=== PATIENT | female | born 1965 | race Caucasian/White ===

== ENCOUNTER 2018-01-10 06:25 | Inpatient (IN) | payer BC ==
[2018-01-10] MEDS ORDERED: SODIUM CHLORIDE 0.9% 1,000 ML IV STA (06:57)
[2018-01-10] MEDS ORDERED: MAG HYDROX/AL HYDROX/SIMETH 30 ML, HYOSCYAMINE ELIXIR 10 ML, CIMETIDINE HCL 300 MG, LID... PO STA ×4 (06:58)
--- NOTE | 2018-01-10 07:00 | ED ---
General Adult HPI - General Chief complaint: Chest Pain Stated complaint: Abdominal Pain, light-headed Time Seen by Provider: 01/10/18 06:52 Source: patient, RN notes reviewed Mode of arrival: ambulatory Limitations: no limitations - History of Present Illness Initial comments: Patient's a 52-year-old female presented to the emergency room today with a chief complaint of upper abdominal pain it's radiating around to the back both left and right side. She states she's also felt some pain radiate up into the chest. She states does not feel like acid reflux to her. She states she has been trying to take Prilosec this past week with little relief. Patient does not pain is worse when she lays down. States pain slightly better at this time but was unable to sleep last night. Currently rates pain 5/10. Denies any other complaints or symptoms. Patient denies any recent fever, chills, shortness of breath, back pain, nausea or vomiting, numbness or tingling, headaches or visual changes, or any other complaints. - Related Data Home Medications Medication Instructions Recorded Confirmed Aspirin EC [Ecotrin Low Dose] 81 mg PO HS 01/10/18 01/10/18 Cyanocobalamin (Vitamin B-12) 1,000 mcg PO HS 01/10/18 01/10/18 [Vitamin B-12] Allergies Allergy/AdvReac Type Severity Reaction Status Date / Time bee venom protein (honey bee) Allergy Anaphylaxis Verified 01/10/18 08:03 Review of Systems ROS Statement: Those systems with pertinent positive or pertinent negative responses have been documented in the HPI. ROS Other: All systems not noted in ROS Statement are negative. Past Medical History Past Medical History: Hyperlipidemia Additional Past Medical History / Comment(s): brain lesions History of Any Multi-Drug Resistant Organisms: None Reported Past Surgical History: Back Surgery Past Psychological History: No Psychological Hx Reported Smoking Status: Current every day smoker Past Alcohol Use History: None Reported Past Drug Use History: None Reported General Exam - General Exam Comments Initial Comments: General: The patient is awake and alert, in no distress, and does not appear acutely ill. Eye: Pupils are equal, round and reactive to light, extra-ocular movements are intact. No nystagmus. There is normal conjunctiva bilaterally. No signs of icterus. Ears, nose, mouth and throat: There are moist mucous membranes and no oral lesions. Neck: The neck is supple, there is no tenderness or JVD. Cardiovascular: There is a regular rate and rhythm. No murmur, rub or gallop is appreciated. Respiratory: Lungs are clear to auscultation, respirations are non-labored, breath sounds are equal. No wheezes, stridor, rales, or rhonchi. Gastrointestinal: Abdomen soft on palpation. Patient does have tenderness epigastric and left upper quadrant. No rebound, guarding or CVA tenderness. Musculoskeletal: Normal ROM, no tenderness. Strength 5/5. Sensation intact. Pulses equal bilaterally 2+. Neurological: A&O x 3. CN II-XII intact, There are no obvious motor or sensory deficits. Coordination appears grossly intact. Speech is normal. Skin: Skin is warm and dry and no rashes or lesions are noted. Psychiatric: Cooperative, appropriate mood & affect, normal judgment. Limitations: no limitations Course Vital Signs 01/10/18 01/10/18 06:40 08:03 Temperature 98.2 F Pulse Rate 71 54 L Respiratory 17 18 Rate Blood Pressure 124/69 111/63 O2 Sat by Pulse 99 97 Oximetry EKG Findings - EKG Comments: EKG Findings:: 0652: EKG shows normal sinus rhythm at 73 bpm NE interval 140. QRS 82. QT/QTC 398/438. No acute ST changes. Medical Decision Making - Medical Decision Making Patient reexamined at this time shows no signs of distress. She is resting couple. She does admit to some mild improvement after GI cocktail. Patient labs been reviewed and are unremarkable. EKG showed no acute abnormality. Patient was on heart monitor and did have an episode of tachycardia it is difficult to distinguish P waves. Episode lasted a few seconds. Patient does admit that she did feel some palpitations. She states she has had symptoms similar to this in the past has tried follow-up for it. States never been captured and never used a Holter monitor. Patient will be admitted with cardiology consult. Patient will have serial cardiac enzymes. - Lab Data Result diagrams: 01/10/18 07:04 01/10/18 07:04 Lab Results 01/10/18 01/10/18 01/10/18 Range/Units 07:04 07:04 07:04 WBC 9.0 (3.8-10.6) k/uL RBC 4.35 (3.80-5.40) m/uL Hgb 13.7 (11.4-16.0) gm/dL Hct 41.4 (34.0-46.0) % MCV 95.1 (80.0-100.0) fL MCH 31.6 (25.0-35.0) pg MCHC 33.2 (31.0-37.0) g/dL RDW 12.6 (11.5-15.5) % Plt Count 290 (150-450) k/uL Neutrophils % 57 % Lymphocytes % 34 % Monocytes % 5 % Eosinophils % 2 % Basophils % 0 % Neutrophils # 5.2 (1.3-7.7) k/uL Lymphocytes # 3.1 (1.0-4.8) k/uL Monocytes # 0.5 (0-1.0) k/uL Eosinophils # 0.2 (0-0.7) k/uL Basophils # 0.0 (0-0.2) k/uL PT (9.0-12.0) sec INR (<1.2) APTT (22.0-30.0) sec Sodium 141 (137-145) mmol/L Potassium 4.8 (3.5-5.1) mmol/L Chloride 109 H (98-107) mmol/L Carbon Dioxide 28 (22-30) mmol/L Anion Gap 4 mmol/L BUN 11 (7-17) mg/dL Creatinine 0.85 (0.52-1.04) mg/dL Est GFR (CKD-EPI)AfAm >90 (>60 ml/min/1.73 sqM) Est GFR (CKD-EPI)NonAf 79 (>60 ml/min/1.73 sqM) Glucose 97 (74-99) mg/dL Calcium 9.4 (8.4-10.2) mg/dL Magnesium 2.0 (1.6-2.3) mg/dL Total Bilirubin 0.3 (0.2-1.3) mg/dL AST 23 (14-36) U/L ALT 33 (9-52) U/L Alkaline Phosphatase 76 (38-126) U/L Total Creatine Kinase 67 (30-135) U/L CK-MB (CK-2) 0.4 (0.0-2.4) ng/mL CK-MB (CK-2) Rel Index 0.6 Troponin I <0.012 (0.000-0.034) ng/mL Total Protein 6.7 (6.3-8.2) g/dL Albumin 4.1 (3.5-5.0) g/dL Amylase 57 (30-110) U/L Lipase 68 (23-300) U/L 01/10/18 Range/Units 07:04 WBC (3.8-10.6) k/uL RBC (3.80-5.40) m/uL Hgb (11.4-16.0) gm/dL Hct (34.0-46.0) % MCV (80.0-100.0) fL MCH (25.0-35.0) pg MCHC (31.0-37.0) g/dL RDW (11.5-15.5) % Plt Count (150-450) k/uL Neutrophils % % Lymphocytes % % Monocytes % % Eosinophils % % Basophils % % Neutrophils # (1.3-7.7) k/uL Lymphocytes # (1.0-4.8) k/uL Monocytes # (0-1.0) k/uL Eosinophils # (0-0.7) k/uL Basophils # (0-0.2) k/uL PT 9.8 (9.0-12.0) sec INR 1.0 (<1.2) APTT 22.5 (22.0-30.0) sec Sodium (137-145) mmol/L Potassium (3.5-5.1) mmol/L Chloride (98-107) mmol/L Carbon Dioxide (22-30) mmol/L Anion Gap mmol/L BUN (7-17) mg/dL Creatinine (0.52-1.04) mg/dL Est GFR (CKD-EPI)AfAm (>60 ml/min/1.73 sqM) Est GFR (CKD-EPI)NonAf (>60 ml/min/1.73 sqM) Glucose (74-99) mg/dL Calcium (8.4-10.2) mg/dL Magnesium (1.6-2.3) mg/dL Total Bilirubin (0.2-1.3) mg/dL AST (14-36) U/L ALT (9-52) U/L Alkaline Phosphatase (38-126) U/L Total Creatine Kinase (30-135) U/L CK-MB (CK-2) (0.0-2.4) ng/mL CK-MB (CK-2) Rel Index Troponin I (0.000-0.034) ng/mL Total Protein (6.3-8.2) g/dL Albumin (3.5-5.0) g/dL Amylase (30-110) U/L Lipase (23-300) U/L Disposition Clinical Impression: Chest pain Disposition: ADMITTED IP TO THIS HOSP Condition: Good Instructions: Chest Pain (ED) Is patient prescribed a controlled substance at d/c from ED?: No Referrals: Ej Laura MD [Primary Care Provider] - 1-2 days Time of Disposition: 08:33
[2018-01-10 07:23] LABS: Basophils % (A) 0 %; Eosinophils # (A) 0.2 k/uL (0-0.7); Eosinophils % (A) 2 %; HCT 41.4 % (34.0-46.0); HGB 13.7 gm/dL (11.4-16.0); Lymphocytes # (A) 3.1 k/uL (1.0-4.8); Lymphocytes % (A) 34 %; MCH 31.6 pg (25.0-35.0); MCHC 33.2 g/dL (31.0-37.0); MCV 95.1 fL (80.0-100.0); Mean Platelet Volume 6.8; Monocytes # (A) 0.5 k/uL (0-1.0); Monocytes % (A) 5 %; Neutrophils # (A) 5.2 k/uL (1.3-7.7); Neutrophils % (A) 57 %; Platelet Count 290 k/uL (150-450); RBC 4.35 m/uL (3.80-5.40); RDW 12.6 % (11.5-15.5)
[2018-01-10 07:30] LABS: Partial Thromboplastin Time 22.5 sec (22.0-30.0); Prothrombin Time 9.8 sec (9.0-12.0)
[2018-01-10 07:35] LABS: ALT 33 U/L (9-52); AST 23 U/L (14-36); Albumin 4.1 g/dL (3.5-5.0); Alkaline Phosphatase 76 U/L (38-126); Amylase 57 U/L (30-110); Anion Gap 4 mmol/L; Blood Urea Nitrogen 11 mg/dL (7-17); Calcium 9.4 mg/dL (8.4-10.2); Carbon Dioxide 28 mmol/L (22-30); Chloride 109 mmol/L (98-107); Glucose 97 mg/dL (74-99); Lipase 68 U/L (23-300); Potassium 4.8 mmol/L (3.5-5.1); Sodium 141 mmol/L (137-145); Total Bilirubin 0.3 mg/dL (0.2-1.3); Total Protein 6.7 g/dL (6.3-8.2)
--- NOTE | 2018-01-10 07:37 | XR ---
EXAMINATION TYPE: XR chest 2V DATE OF EXAM: 01/10/2018 COMPARISON: NONE HISTORY: Chest pain TECHNIQUE: Frontal and lateral views of the chest are obtained. FINDINGS: There is no focal air space opacity, pleural effusion, or pneumothorax seen. Platelike lef t basilar subsegmental atelectasis is present. The cardiac silhouette size is within normal limits. The osseous structures are intact. Mild multilevel degenerative change of the thoracic spine is not ed. IMPRESSION: Minimal left basilar linear subsegmental atelectasis. Otherwise no acute cardiopulmonary process. Cholecystectomy clips are noted within the right upper quadrant.
[2018-01-10 07:52] LABS: Creatine Kinase 67 U/L (30-135)
[2018-01-10 08:06] LABS: Creatine Kinase MB 0.4 ng/mL (0.0-2.4); Troponin I <0.012 ng/mL (0.000-0.034)
[2018-01-10] MEDS ORDERED: NITROGLYCERIN SL TABS 0.4 MG TAB SUBLINGUAL PRN ×2 (08:30→08:33)
[2018-01-10] MEDS ORDERED: ASPIRIN 81 MG PO STA (08:30)
[2018-01-10] MEDS ORDERED: SODIUM CHLORIDE 0.9% 1,000 ML IV ONE (08:33)
[2018-01-10 14:06] LABS: Creatine Kinase 66 U/L (30-135)
[2018-01-10 14:18] LABS: Creatine Kinase MB 0.3 ng/mL (0.0-2.4); Troponin I <0.012 ng/mL (0.000-0.034)
[2018-01-10] MEDS ORDERED: CALCIUM CARBONATE 500 MG CHEWABLE PO PRN (17:30)
[2018-01-10 20:36] LABS: Creatine Kinase 68 U/L (30-135)
[2018-01-10 20:46] LABS: Creatine Kinase MB 0.2 ng/mL (0.0-2.4); Troponin I <0.012 ng/mL (0.000-0.034)
[2018-01-10] MEDS ORDERED: HYDROcodone/APAP 5-325MG 1 EACH TAB PO PRN (23:57)
[2018-01-11] MEDS: ONDANSETRON 4 MG/2 ML VIAL IVP PRN (00:02)
[2018-01-11] MEDS: METOPROLOL TARTRATE 25 MG TAB PO SCH ×3 (00:20→21:14)
[2018-01-11 03:26] LABS: Cholesterol 224 mg/dL (<200); HDL Cholesterol 33 mg/dL (40-60); LDL Cholesterol,Calculated 154 mg/dL (0-99); Triglycerides 185 mg/dL (<150)
[2018-01-11] MEDS ORDERED: AMINOPHYLLINE 500 MG/20 ML VIAL IV PRN (08:39)
[2018-01-11] MEDS ORDERED: REGADENOSON 0.4 MG/5 ML SYRINGE IV ONE (08:39)
--- NOTE | 2018-01-11 08:55 | P.HPIM ---
History of Present Illness Chief Complaint: Epigastric pain This is a very pleasant 52-year-old female with no significant past medical history who complained of epigastric and lower chest pain and discomfort. She reports the pain radiates from her epigastrium in the band like fashion to her back She stated that on and off epigastric discomfort for the last few weeks. 4 years prior to this admission she underwent upper endoscopy due to similar pain and at that time she was told that she has significant hiatal hernia and gastritis. She cannot recall if she was told having any ulcers. After that she did not have much of the regular follow-ups and she does not remember being on any antacids or PPIs. For the last couple weeks she's been having on and off epigastric discomfort. Very often brought the foot. Also complicated by some heartburns and nausea no vomiting. She did not notice any blood in stool or black stools. There is no any fevers, night sweats or weight loss. She did not have any sour taste in her mouth she does not have any dysphagia or odynophagia few years ago she had her gallbladder removed. The last couple days especially on the day of the admission the pain intensified and it was more persistent which prompted her coming to the emergency Department. Emergency department she had EKG and troponin is essentially negative and she was admitted more due to cardiac evaluation because she also had some palpitations any irregularities in her heart rate. They that she's been having palpitations for many years and nothing was ever really found on workup in the past. Emergency department she was given a GI cocktail for her abdominal discomfort which she said significantly improve her pain as she's feeling now much better. Did not try anything else for this pain at home. She not notice any particular provoking factors except for food. She did not notice any alleviating factors. Review of Systems REVIEW OF SYSTEMS: CONSTITUTIONAL: She denies any recent weight changes, fevers or night sweats. DERMATOLOGIC: She denies any rashes. HEENT: Eyes: She has had no changes in her vision. No eye pain. No discharge. ENT: She had no hearing changes, no throat pain, no sinus difficulties. No hoarseness. CARDIOVASCULAR: She denies any chest pain or abnormal heart beats, or any swelling in her ankles or feet. RESPIRATORY: No wheezing or coughing. GASTROINTESTINAL: As noted above in history of present illness. GENITOURINARY: She denies any urinary urgency, frequency or burning, and there has been no blood in her urine. She has no flank pain. She has also had no vaginal discharge or bleeding. MUSCULOSKELETAL: She notes full range of motion of all her joints without pain or swelling. ENDOCRINE: She denies any heat or cold intolerance or excessive thirst or urination. NEUROLOGICAL: Currently, no headache. She has no vision changes, or fainting. No numbness or tingling. PSYCHIATRIC: No depression or anxiety Past Medical History Past Medical History: GERD/Reflux, Hyperlipidemia Additional Past Medical History / Comment(s): Brain lesions pt states physician seems unconcerned, B12 deficiency, spondylolisthesis, chronic low back pain. History of Any Multi-Drug Resistant Organisms: None Reported Past Surgical History: Back Surgery, Cholecystectomy, Tubal Ligation Additional Past Surgical History / Comment(s): lower back fusion, R arm "fatty tumor" removed, 2 ectopic pregnancies with lap surgery, colonoscopy. Additional Past Anesthesia/Blood Transfusion Reaction / Comment(s): After back surgery, pt states she woke in excruciating pain and had to be put "out". Pt has clausterphobia but can tolerate MRIs. Smoking Status: Current every day smoker - Past Family History Father Family Medical History: Coronary Artery Disease (CAD) Additional Family Medical History / Comment(s): Father had coronary stents. Mother Additional Family Medical History / Comment(s): Mother is an alcoholic and has hip problems. Medications and Allergies Home Medications Medication Instructions Recorded Confirmed Type Aspirin EC [Ecotrin Low Dose] 81 mg PO HS 01/10/18 01/10/18 History Cyanocobalamin (Vitamin B-12) 1,000 mcg PO HS 01/10/18 01/10/18 History [Vitamin B-12] Allergies Allergy/AdvReac Type Severity Reaction Status Date / Time bee venom protein (honey bee) Allergy Anaphylaxis Verified 01/10/18 08:03 Physical Exam Vitals: Vital Signs Temp Pulse Pulse Resp BP BP Pulse Ox 01/10/18 15:57 98.4 F 65 16 97/60 95 01/10/18 12:00 97.9 F 71 16 103/70 96 01/10/18 10:23 98 01/10/18 09:38 97.7 F 70 16 122/72 97 01/10/18 09:28 97.8 F 78 18 111/69 96 01/10/18 08:41 76 18 122/78 96 01/10/18 08:03 54 L 18 111/63 97 01/10/18 06:40 98.2 F 71 17 124/69 99 Intake and Output 01/10/18 01/10/18 01/10/18 06:59 14:59 22:59 Intake Total 800 Balance 800 Intake: Oral 800 Other: Voiding Method Toilet Weight 86.183 kg 90.1 kg General: No distress. Oriented x 3, normal mood and affect . Ambulating without difficulty. HEENT: Head: Normocephalic, atraumatic, no visible or palpable masses, depressions, or scaring, conjunctiva clear, sclera non-icteric, EOM intact, PERRL Oral: Mucous membranes moist, no mucosal lesions. Pharynx: Mucosa non-inflamed, no tonsillar hypertrophy or exudate Neck: Supple, without lesions, bruits, or adenopathy, thyroid non-enlarged and non-tender Heart: No cardiomegaly or thrills; regular rate and rhythm, no murmur or gallop Lungs: Clear to auscultation and percussion Abdomen: Epigastric tenderness with deep palpation without any guarding involuntary or rebounding, Bowel sounds normal,organomegaly, masses, or hernia Back: Spine normal without deformity or tenderness, no CVA tenderness Extremities: No amputations or deformities, cyanosis, edema or varicosities, peripheral pulses intact Musculoskeletal: No peripheral joint swelling, pain, erythema. No clubbing Skin: Good turgor, no rash, unusual bruising or prominent lesions Neurologic: CN 2-12 normal. Sensation to pain, touch, and proprioception normal. DTRs normal in upper and lower extremities. No pathologic reflexes. Psychiatric: Oriented X3, intact recent and remote memory, judgment and insight , normal mood and affect. Results CBC & Chem 7: 01/10/18 07:04 01/10/18 07:04 Labs: Abnormal Lab Results - Last 24 Hours (Table) 01/10/18 Range/Units 07:04 Chloride 109 H (98-107) mmol/L Thrombosis Risk Factor Assmnt - DVT/VTE Prophylaxis DVT/VTE Prophylaxis: Low risk, early ambulation encouraged - Choose All That Apply Any of the Below Risk Factors Present?: Yes Each Factor Represents 1 point: Age 41-60 years, Obesity (BMI >25) Other Risk Factors: No Other congenital or acquired thrombophilia - If yes, enter type in comment: No Thrombosis Risk Factor Assessment Total Risk Factor Score: 2 Thrombosis Risk Factor Assessment Level: Low Risk Assessment and Plan Plan: 1. Epigastric pain Rule out upper GI pathology including hiatal hernia: Peptic ulcer disease, gastritis or pancreatic pathology Her lipids been normal here but many consider other pancreas related pathologies like tumors We'll order PPI Antacids when necessary discontinue aspirin GI consult 2. Palpitations Questionable chest pain Cardiology has been consulted and we'll await their input Patient will be on telemetry overnight and we will review of anything comes up Patient currently admitted in observation as expected to have less than 2 midnights stay She is a full code is surrogate decision maker Time with Patient: Greater than 30
[2018-01-11] MEDS ORDERED: ASPIRIN 325 MG TAB PO SCH (09:00)
--- NOTE | 2018-01-11 10:03 | P.CRDCN ---
History of Present Illness Consult date: 01/11/18 Chief complaint: Epigastric discomfort History of present illness: This is a pleasant 52-year-old female patient with a past medical history significant for dyslipidemia not on any medication as well as history of smoking presented to the emergency room complaining of epigastric discomfort. The patient stated that she was experiencing discomfort mainly in the epigastric area but sometimes is associated with a pressure in the mid of the chest radiating to her neck. These episodes of epigastric and chest discomfort are associated with shortness of breath. She stated that it started about a year ago and over the last several weeks to several month she has been experiencing them more often. Beside that she has been experiencing intermittent episodes of heart racing and fluttering associated with dizziness and lightheadedness. No loss of consciousness and no syncope. The patient is not aware of any prior history of coronary artery disease and never seen any finish sander in the past. No history of cardiac arrhythmia as well. The EKG showed sinus rhythm with nonspecific changes only. 3 sets of cardiac enzymes were checked and came in to be unremarkable. The chest x-ray showed no acute abnormalities. The patient has been going in and out atrial fibrillation with RVR Y she is in the hospital. She is has no history of atrial fibrillation in the past. She does have history of thyroid disorder but she is not on any medication. She was also has history of hyperlipidemia and she is not on any medications for that. The LDL was checked and came in to be severely elevated. Beside that the patient does have history of snoring during the night but she never been diagnosed with obstructive sleep apnea. In terms of past medical history she does have dyslipidemia not on any medication and also history of hypothyroidism. No major cardiovascular surgery before. The patient is a smoker of about one pack per day. She does have very significant family history of coronary artery disease. Past Medical History Past Medical History: GERD/Reflux, Hyperlipidemia Additional Past Medical History / Comment(s): Brain lesions pt states physician seems unconcerned, B12 deficiency, spondylolisthesis, chronic low back pain. History of Any Multi-Drug Resistant Organisms: None Reported Past Surgical History: Back Surgery, Cholecystectomy, Tubal Ligation Additional Past Surgical History / Comment(s): lower back fusion, R arm "fatty tumor" removed, 2 ectopic pregnancies with lap surgery, colonoscopy. Additional Past Anesthesia/Blood Transfusion Reaction / Comment(s): After back surgery, pt states she woke in excruciating pain and had to be put "out". Pt has clausterphobia but can tolerate MRIs. Smoking Status: Current every day smoker - Past Family History Father Family Medical History: Coronary Artery Disease (CAD) Additional Family Medical History / Comment(s): Father had coronary stents. Mother Additional Family Medical History / Comment(s): Mother is an alcoholic and has hip problems. Medications and Allergies Home Medications Medication Instructions Recorded Confirmed Type Aspirin EC [Ecotrin Low Dose] 81 mg PO HS 01/10/18 01/10/18 History Cyanocobalamin (Vitamin B-12) 1,000 mcg PO HS 01/10/18 01/10/18 History [Vitamin B-12] Allergies Allergy/AdvReac Type Severity Reaction Status Date / Time bee venom protein (honey bee) Allergy Anaphylaxis Verified 01/10/18 08:03 Physical Exam Vitals: Vital Signs Temp Pulse Resp BP Pulse Ox 01/11/18 07:45 98.1 F 69 16 101/60 95 01/11/18 04:00 98.4 F 53 L 16 109/68 96 01/11/18 00:00 98.3 F 70 18 120/74 98 01/10/18 20:00 16 01/10/18 19:41 97.6 F 61 16 141/77 97 01/10/18 15:57 98.4 F 65 16 97/60 95 01/10/18 12:00 97.9 F 71 16 103/70 96 01/10/18 10:23 98 Intake and Output 01/10/18 01/11/18 01/11/18 22:59 06:59 14:59 Intake Total 1000 Balance 1000 Intake: Oral 1000 Other: Voiding Method Toilet Toilet Toilet # Voids 1 2 - Constitutional General appearance: no acute distress - Respiratory Respiratory: bilateral: CTA - Cardiovascular Rhythm: regular Results 01/10/18 07:04 01/10/18 07:04 Cardiac Enzymes 01/10/18 01/10/18 Range/Units 12:53 19:50 CK-MB (CK-2) 0.3 0.2 (0.0-2.4) ng/mL Troponin I <0.012 <0.012 (0.000-0.034) ng/mL Lipids 01/10/18 Range/Units 07:04 Triglycerides 185 H (<150) mg/dL Cholesterol 224 H (<200) mg/dL HDL Cholesterol 33 L (40-60) mg/dL Current Medications Generic Name Dose Route Start Last Admin Trade Name Freq PRN Reason Stop Dose Admin Hydrocodone Bitart/Acetaminophen 1 each 01/10/18 23:57 01/11/18 00:02 Collyer 5-325 PO 1 each Q6HR PRN Administration Pain Aminophylline 100 mg 01/11/18 08:39 Aminophylline IV 01/11/18 23:59 ONCE PRN Patient Response Calcium Carbonate/Glycine 1,000 mg 01/10/18 17:30 Tums PO QID PRN Heartburn Metoprolol Tartrate 25 mg 01/10/18 23:45 01/11/18 00:20 Lopressor PO 25 mg BID REJI Administration Ondansetron HCl 4 mg 01/10/18 23:57 01/11/18 00:02 Zofran IVP 4 mg Q6HR PRN Administration Nausea And Vomiting Pantoprazole Sodium 40 mg 01/11/18 07:30 Protonix PO [id number] REJI Intake and Output 01/10/18 01/11/18 01/11/18 22:59 06:59 14:59 Intake Total 1000 Balance 1000 Intake: Oral 1000 Other: Voiding Method Toilet Toilet Toilet # Voids 1 2 01/10/18 07:04 01/10/18 07:04 Assessment and Plan Assessment: Assessment #1 intermittent episodes of epigastric/chest discomfort #2 abnormal EKG concerning for severe CAD #3 paroxysmal atrial fibrillation #4 hypothyroidism #5 possible sleep apnea #6 significant history of smoking Plan #1 the patient was ruled out for acute coronary event #2 I am concerned about severe CAD getting her risk factor of dyslipidemia, significant history of smoking, and significant family history of coronary artery disease and also abnormal baseline EKG #3 I will obtain a stress test to rule out any severe CAD. Also I will obtain an echocardiogram was Doppler #4 I will start the patient on beta karissa with a small dose of metoprolol titrate to keep her in normal sinus mechanism #5 follow-up with the patient. Thank you for allowing us participate in her care and we will continue following up with her
--- NOTE | 2018-01-11 10:56 | ECHOF ---
Referral Reason:chest pain MEASUREMENTS -------- HEIGHT: 170.2 cm WEIGHT: 89.8 kg BP: IVSd: 0.9 cm (0.6 - 1.1) LVIDd: 4.0 cm (3.9 - 5.3) LVPWd: 1.2 cm (0.6 - 1.1) IVSs: 1.4 cm LVIDs: 2.5 cm LVPWs: 1.2 cm Ao Diam: 3.3 cm (2.0 - 3.7) AV Cusp: 2.0 cm (1.5 - 2.6) LA Diam: 3.4 cm (2.7 - 3.8) MV EXCURSION: 14.577 mm (> 18.000) MV EF SLOPE: 125 mm/s (70 - 150) EPSS: 0.5 cm MV E Dionte: 0.79 m/s MV DecT: 170 ms MV A Dionte: 0.67 m/s MV E/A Ratio: 1.17 RAP: 5.00 mmHg RVSP: 19.09 mmHg FINDINGS -------- Sinus rhythm with extra systolic beats. This was a technically good study. The left ventricular size is normal. There is borderline concentric left ventricular hypertrophy. Overall left ventricular systolic function is normal with, an EF between 55 - 60 %. The right ventricle is normal in size and function. The left atrial size is normal. The right atrium is normal in size. The aortic valve is trileaflet, and appears structurally normal. No aortic stenosis or regurgitation. There is trace mitral regurgitation. Trace tricuspid regurgitation present. The right ventricular systolic pressure, as measured by Dopp ler, is 19.09mmHg. Pulmonic valve appears structurally normal. The aortic root size is normal. Normal inferior vena cava with normal inspiratory collapse consistent with estimated right atrial pre ssure of 5 mmHg. The pericardium is normal. CONCLUSIONS -------- 1. Sinus rhythm with extra systolic beats. 2. This was a technically good study. 3. The left ventricular size is normal. 4. There is borderline concentric left ventricular hypertrophy. 5. Overall left ventricular systolic function is normal with, an EF between 55 - 60 %. 6. The right ventricle is normal in size and function. 7. The left atrial size is normal. 8. The right atrium is normal in size. 9. The aortic valve is trileaflet, and appears structurally normal. No aortic stenosis or regurgitati on. 10. There is trace mitral regurgitation. 11. Trace tricuspid regurgitation present. 12. The right ventricular systolic pressure, as measured by Doppler, is 19.09mmHg. 13. Pulmonic valve appears structurally normal. 14. The aortic root size is normal. 15. Normal inferior vena cava with normal inspiratory collapse consistent with estimated right atrial pressure of 5 mmHg. 16. The pericardium is normal. ENGINEERING SYSTEMS ANALYST: Polly Rousseau RDCS
[2018-01-11] MEDS: PANTOPRAZOLE 40 MG TABLET PO SCH (11:33)
--- NOTE | 2018-01-11 11:47 | P.PN ---
Progress Note - Text Progress Note Date: 01/11/18 Consult attempted patient off floor for testing. We'll reevaluate.
--- NOTE | 2018-01-11 11:50 | NM ---
EXAMINATION TYPE: NM stress lexiscan cardiolite DATE OF EXAM: 01/11/2018 COMPARISON: NONE HISTORY: Chest pain TECHNIQUE: After the intravenous administration of 10.1 mCi Tc 99m Sestamibi - Cardiolite resting SP ECT images were acquired post injection. The patient received 0.4mg Lexiscan, 25.9 mCi Tc 99m Sestamibi - Stress images obtained. FINDINGS: Review of stress and rest SPECT images demonstrates no distinct perfusion abnormality. Gated analysi s shows normal wall motion with an estimated left ventricular ejection fraction of 52 %. IMPRESSION: No scintigraphic evidence for reversible ischemia.
--- NOTE | 2018-01-11 12:25 | EST ---
EXERCISE STRESS AGE: 52 SEX: F HT: 5'7" WT: 198 PROTOCOL: Lexiscan Cardiolite Stress Test HEART RATE REST: 64 BLOOD PRESSURE REST: 110/65 MAXIMUM HEART RATE ACHIEVED: 82 MAXIMUM BLOOD PRESSURE: 110/65 INDICATIONS: Chest pain, palpitations. CLINICAL INFORMATION: STRESS DATA: Pretesting physical exam examination showed a heart rate of 64, pressure 110/65 mmHg. Baseline EKG showed sinus rhythm; 0.4 mg of Lexiscan was given at 15 seconds per protocol. The maximum heart rate was 82 beats per minute and maximum pressure was 110/65 mmHg. Clinically, the patient did not have any symptoms of chest pain or discomfort and the EKG did not show any significant ST or T-wave abnormalities concerning for ischemia. CONCLUSION: 1. Nondiagnostic electrocardiogram stress testing in response to Lexiscan. 2. Please follow up on the Cardiolite portion on a separate report from Radiology Department. MMODL / IJN: [id number] /
--- NOTE | 2018-01-11 16:09 | P.PN ---
Subjective Patient remained largely asymptomatic from the standpoint of chest pain overnight. Also no any nausea or epigastric discomfort. It was noted on telemetry that she's been having paroxysmal A. fib going with a rate even up to 180s. She underwent stress test today and echocardiogram. Cardiology started her Lopressor and recommended further monitoring in the hospital. Patient herself also expressed concern with her epigastric discomfort and was looking forward to talking to gastroenterology service as well. We discussed on the pertinent details of findings. Also reevaluated any other symptomatology at home including daytime sleepiness and snoring. Also she mentioned that recently she developed some rash on her arm and that her primary care doctor diagnosed her with lupus Otherwise she's been feeling fine without any chest pain shortness of breath nausea vomiting fever or chills dizziness lightheadedness or any abdominal pain or diarrhea currently. Objective - Vital Signs Vital signs: Vital Signs Temp 97.6 F 01/11/18 11:50 Pulse 52 L 01/11/18 11:50 Resp 18 01/11/18 11:50 BP 110/73 01/11/18 11:50 Pulse Ox 96 01/11/18 11:50 Intake & Output 01/10/18 01/11/18 01/11/18 18:59 06:59 18:59 Intake Total 1800 420 Balance 1800 420 Weight 90.1 kg 89.811 kg Intake: Oral 1800 420 Other: Voiding Method Toilet Toilet Toilet # Voids 1 2 - Exam General: No distress. Oriented x 3, normal mood and affect . Ambulating without difficulty. Heart: No cardiomegaly or thrills; regular rate and rhythm, no murmur or gallop Lungs: Clear to auscultation and percussion Abdomen: Bowel sounds normal, no tenderness, organomegaly, masses, or hernia Back: Spine normal without deformity or tenderness, no CVA tenderness Extremities: No amputations or deformities, cyanosis, edema or varicosities, peripheral pulses intact - Labs CBC & Chem 7: 01/10/18 07:04 01/10/18 07:04 Labs: Abnormal Lab Results - Last 24 Hours (Table) 01/10/18 Range/Units 07:04 Triglycerides 185 H (<150) mg/dL Cholesterol 224 H (<200) mg/dL LDL Cholesterol, Calc 154 H (0-99) mg/dL HDL Cholesterol 33 L (40-60) mg/dL Assessment and Plan Plan: 1. Epigastric pain Continue PPI and) GI evaluation pending GI consult 2. Paroxysmal A. fib with RVR Started on Lopressor Monitor overnight response TSH Sleep apnea evaluation as outpatient 3. Skin rash Recently diagnosed with lupus No evidence of lupus flare at this point
[2018-01-11] MEDS: ATORVASTATIN 10 MG TAB PO SCH (21:14)
[2018-01-11] MEDS ORDERED: IBUPROFEN 400 MG TAB PO PRN (21:22)
[2018-01-12] MEDS ORDERED: METOPROLOL TARTRATE 25 MG TAB PO STA (00:50)
[2018-01-12] MEDS: ONDANSETRON 4 MG/2 ML VIAL IVP PRN (02:26)
[2018-01-12] MEDS: METOPROLOL TARTRATE 25 MG TAB PO SCH ×2 (08:02→22:10)
[2018-01-12] MEDS: PANTOPRAZOLE 40 MG TABLET PO SCH (08:02)
--- NOTE | 2018-01-12 13:25 | P.PN ---
Subjective Overnight patient did not have any chest pain, shortness of breath nausea vomiting. She did not experience any palpitations although she had one elevation in the heart rate for which he received 25 mg metoprolol and now she' s been in normal sinus rhythm. She was evaluated by gastroenterology and off work EGD and currently she is awaiting to be taken to the procedure. REVIEW OF SYSTEMS: CONSTITUTIONAL: No fever or chills HEENT: No changes in vision or voice CARDIOVASCULAR: no chest pain or abnormal heart beats, or any swelling in ankles or feet. RESPIRATORY: No wheezing or coughing. GASTROINTESTINAL: No abdominal pain, no nausea no vomiting no constipation or diarrhea GENITOURINARY: no any urinary urgency, frequency or burning, and there has been no blood in her urine. no flank pain. MUSCULOSKELETAL: She notes full range of motion of all her joints without pain or swelling. NEUROLOGICAL: , no headache. no vision changes, or fainting. No numbness or tingling. Objective - Vital Signs Vital signs: Vital Signs Temp 96.3 F L 01/12/18 08:00 Pulse 53 L 01/12/18 08:00 Resp 20 01/12/18 08:00 BP 111/65 01/12/18 08:00 Pulse Ox 98 01/12/18 08:00 Intake & Output 01/11/18 01/12/18 01/12/18 18:59 06:59 18:59 Intake Total 420 Output Total 500 Balance 420 -500 Weight 89.811 kg 89.7 kg Intake: Oral 420 Output: Urine 500 Other: Voiding Method Toilet Toilet # Voids 1 2 - Exam General: No distress. Oriented x 3, normal mood and affect . Ambulating without difficulty. Heart: No cardiomegaly or thrills; regular rate and rhythm, no murmur or gallop Lungs: Clear to auscultation and percussion Abdomen: Bowel sounds normal, no tenderness, organomegaly, masses, or hernia Back: Spine normal without deformity or tenderness, no CVA tenderness Extremities: No amputations or deformities, cyanosis, edema or varicosities, peripheral pulses intact - Labs CBC & Chem 7: 01/10/18 07:04 01/10/18 07:04 Assessment and Plan Plan: 1. Epigastric pain Continue PPI and Tums when necessary EGD pending 2. Paroxysmal A. fib with RVR Started on Lopressor TSH normal Sleep apnea evaluation as outpatient 3. Skin rash Recently diagnosed with lupus No evidence of lupus flare at this point Disposition discharge is after EGD today or tomorrow
--- NOTE | 2018-01-12 15:25 | P.PN ---
Subjective Progress Note Date: 01/12/18 This is a pleasant 52-year-old female patient with a past medical history significant for dyslipidemia not on any medication as well as history of smoking presented to the emergency room complaining of epigastric discomfort. The patient stated that she was experiencing discomfort mainly in the epigastric area but sometimes is associated with a pressure in the mid of the chest radiating to her neck. These episodes of epigastric and chest discomfort are associated with shortness of breath. She stated that it started about a year ago and over the last several weeks to several month she has been experiencing them more often. Beside that she has been experiencing intermittent episodes of heart racing and fluttering associated with dizziness and lightheadedness. No loss of consciousness and no syncope. 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 No history of cardiac arrhythmia as well. The EKG showed sinus rhythm with nonspecific changes only. 3 sets of cardiac enzymes were checked and came in to be unremarkable. The chest x-ray showed no acute abnormalities. The patient has been going in and out atrial fibrillation with RVR Y she is in the hospital. She is has no history of atrial fibrillation in the past. She does have history of thyroid disorder but she is not on any medication. She was also has history of hyperlipidemia and she is not on any medications for that. The LDL was checked and came in to be severely elevated. Beside that the patient does have history of snoring during the night but she never been diagnosed with obstructive sleep apnea. In terms of past medical history she does have dyslipidemia not on any medication and also history of hypothyroidism. No major cardiovascular surgery before. The patient is a smoker of about one pack per day. She does have very significant family history of coronary artery disease. 01/12/2018 Patient had a stress test that was negative for any reversible ischemia, she has known paroxysmal A. fib, went into atrial fibrillation through the evening and was transferred to [facility]. Since her transfer upper she's been in and out of atrial fibrillation. Currently in normal sinus rhythm. We will put the patient on flecainide 50 mg one tablet by mouth twice a day today. She is also scheduled tomorrow by GI service to undergo an EGD. Blood pressure 110/60 , heart rate in the 60s. LV function is normal. Objective - Vital Signs Vital signs: Vital Signs Temp 96.3 F L 01/12/18 08:00 Pulse 53 L 01/12/18 08:00 Resp 20 01/12/18 08:00 BP 111/65 01/12/18 08:00 Pulse Ox 98 01/12/18 08:00 Intake & Output 01/11/18 01/12/18 01/12/18 18:59 06:59 18:59 Intake Total 420 240 Output Total 500 Balance 420 -260 Weight 89.811 kg 89.7 kg Intake: Oral 420 240 Output: Urine 500 Other: Voiding Method Toilet Toilet # Voids 1 2 - Exam PHYSICAL EXAMINATION: GENERAL: 22-year-old female in no acute distress at the time of my examination HEENT: Head is atraumatic, normocephalic. Pupils equal, round. Sclera anicteric. Conjunctiva are clear. Mucous membranes of the mouth are moist. Neck is supple. There is no elevated jugular venous pressure.] bruit is heard. HEART EXAMINATION: Heart S1, S2 normal. No murmur or gallop heard. CHEST EXAMINATION: Lungs are clear to auscultation and precussion. No chest wall tenderness is noted on palpation or with deep breathing. Positive mid epigastric tenderness ABDOMEN: Soft, nontender. Bowel sounds are heard. No organomegaly noted. EXTREMITIES: 2+ peripheral pulses with no evidence of peripheral edema and no calf tenderness noted. NEUROLOGIC patient is awake, alert and oriented ?-3. . - Labs CBC & Chem 7: 01/10/18 07:04 01/10/18 07:04 Assessment and Plan Plan: Assessment #1 intermittent episodes of epigastric/chest discomfort #2 abnormal EKG concerning for severe CAD #3 paroxysmal atrial fibrillation #4 hypothyroidism #5 possible sleep apnea #6 significant history of smoking Plan Computed tomography scan stress test negative for any reversible ischemia. Echo shows normal left ventricular systolic function. We will start the patient on flecainide 50 mg one tablet by mouth twice a day today continue to monitor. Patient is scheduled to undergo an EGD tomorrow. DNP note has been reviewed, I agree with a documented findings and plan of care. Patient was seen and examined.
--- NOTE | 2018-01-12 17:25 | P.CONS ---
History of Present Illness - Reason for Consult Consult date: 01/12/18 Abdominal pain Requesting physician: Vick Urbano - Chief Complaint Abdominal and chest pain - History of Present Illness The patient is a 2-year-old female with past medical history significant for dyslipidemia and gastroesophageal reflux disease for which she treats with over- the-counter medications. She presented to the hospital with a chief complaint of epigastric/chest pain. The patient this hasn't started on Wednesday and was described as burning in quality and constant. She felt that the pain radiated into her left shoulder. She reports nausea with the pain but denies any vomiting. The patient has had no change in her bowel habits does report a lifelong history of constipation with approximately one to 2 bowel movements per week. The patient does take 2 baby aspirin daily as well as Motrin as needed. She reported that her reflux has been long-standing and that she will treat this with [id number] ranitidine however she continues to have breakthrough symptoms. She has no prior history of peptic ulcer disease. She does report a previous EGD which showed a hiatal hernia and reports that her last colonoscopy was over 10 years ago. The patient was admitted to the hospital given her symptoms with a full Cardiologic workup including a Lexiscan which was negative and an echocardiogram. The patient has reported some improvement of her symptoms during her hospitalization but has been on a limited diet during the evaluation. Review of Systems Constitutional: Denies chills, Denies fever Eyes: denies blurred vision, denies pain Ears: deny: tinnitus Ears, nose, mouth and throat: Denies headache, Denies sore throat Cardiovascular: Reports chest pain, Denies claudication, Denies dyspnea on exertion, Denies leg edema, Denies shortness of breath Respiratory: Denies cough Gastrointestinal: Reports abdominal pain, Reports constipation, Reports heartburn, Reports nausea, Denies BRBPR, Denies jaundice, Denies loss of appetite, Denies melena, Denies vomiting Genitourinary: Denies dysuria, Denies hematuria Integumentary: Denies color changes, Denies darkening of skin, Denies foot/leg ulcers, Denies pruritus, Denies rash Psychiatric: Denies anxiety, Denies depression Endocrine: Denies fatigue, Denies weight change Past Medical History Past Medical History: GERD/Reflux, Hyperlipidemia Additional Past Medical History / Comment(s): Brain lesions pt states physician seems unconcerned, B12 deficiency, spondylolisthesis, chronic low back pain. History of Any Multi-Drug Resistant Organisms: None Reported Past Surgical History: Back Surgery, Cholecystectomy, Tubal Ligation Additional Past Surgical History / Comment(s): lower back fusion, R arm "fatty tumor" removed, 2 ectopic pregnancies with lap surgery, colonoscopy. Additional Past Anesthesia/Blood Transfusion Reaction / Comm: After back surgery , pt states she woke in excruciating pain and had to be put "out". Pt has clausterphobia but can tolerate MRIs. Smoking Status: Current every day smoker - Past Family History Father Family Medical History: Coronary Artery Disease (CAD) Additional Family Medical History / Comment(s): Father had coronary stents. Mother Additional Family Medical History / Comment(s): Mother is an alcoholic and has hip problems. Medications and Allergies Home Medications Medication Instructions Recorded Confirmed Type Aspirin EC [Ecotrin Low Dose] 81 mg PO HS 01/10/18 01/10/18 History Cyanocobalamin (Vitamin B-12) 1,000 mcg PO HS 01/10/18 01/10/18 History [Vitamin B-12] Allergies Allergy/AdvReac Type Severity Reaction Status Date / Time bee venom protein (honey bee) Allergy Anaphylaxis Verified 01/10/18 08:03 Physical Exam Vitals: Vital Signs Temp Pulse Resp BP BP Pulse Ox 01/12/18 12:00 96.5 F L 50 L 18 94 L 01/12/18 08:00 96.3 F L 53 L 20 111/65 98 01/12/18 03:01 97.6 F 66 16 121/75 96 01/12/18 01:10 59 L 18 105/72 96 01/12/18 00:30 160 H 01/12/18 00:00 16 01/11/18 23:24 98.5 F 40 L 16 119/67 97 01/11/18 20:00 18 Intake and Output 01/12/18 01/12/18 01/12/18 06:59 14:59 22:59 Intake Total 240 Output Total 500 1000 Balance -260 -1000 Intake: Oral 240 Output: Urine 500 1000 Other: Voiding Method Toilet # Voids 2 Weight 89.7 kg - Constitutional General appearance: no acute distress - EENT Eyes: EOMI, no scleral icterus - Neck Neck: no lymphadenopathy - Respiratory Respiratory: bilateral: diminished, negative: rhonchi, wheezing - Cardiovascular Rhythm: regular Heart sounds: normal: S1, S2 - Gastrointestinal General gastrointestinal: no absent bowel sounds, no organomegaly, soft, tenderness Localized gastrointestinal: tender: epigastric periumbilical - Integumentary Integumentary: no jaundiced, no rash - Psychiatric Psychiatric: A&O x's 3 Results CBC & Chem 7: 01/10/18 07:04 01/10/18 07:04 Comments: Results the patient's echocardiogram and Lexiscan were reviewed Assessment and Plan (1) Epigastric abdominal pain Narrative/Plan: The patient has new onset epigastric abdominal pain in the presence of refractory reflux disease differential includes esophagitis, gastritis, dyspepsia, peptic ulcer disease, functional pain or other etiology. The patient has had an extensive cardiac workup with no significant findings to indicate that her pain is related to cardiac pathology Current Visit: Yes Status: Acute Code(s): R10.13 - EPIGASTRIC PAIN SNOMED Code(s): 10073045 (2) Gastroesophageal reflux disease Narrative/Plan: Long-standing history of reflux disease treated with [id number] ranitidine. The patient reports continued symptoms even on the medication. She does take aspirin daily as well as Motrin on occasion. Current Visit: Yes Status: Acute Code(s): K21.9 - GASTRO-ESOPHAGEAL REFLUX DISEASE WITHOUT ESOPHAGITIS SNOMED Code(s): 600062457 Plan: 1. Okay for diet. 2. Appreciate cardiac workup. 3. Nothing by mouth after midnight. 4. Patient instructed to avoid future NSAID use. 5. Plan for EGD in the morning. 6. Patient will need outpatient follow-up for scheduling of colonoscopy. 7. Discussion about tobacco cessation of refractory reflux disease as well as other lifestyle modifications to improve her GERD. 8. Continue Protonix therapy daily. 9. Patient instructed to start fiber supplementation or polyethylene glycol daily as an outpatient for treatment of long-standing history of constipation. Thank you for allowing us to participate in the care of this patient we will continue to follow.
[2018-01-12] MEDS: ATORVASTATIN 10 MG TAB PO SCH (22:10)
[2018-01-12] MEDS: FLECAINIDE 50 MG TAB PO SCH (22:20)
[2018-01-13 01:40] VITALS: RESP 16
[2018-01-13 07:50] VITALS: TEMP 97.3
[2018-01-13] MEDS: ONDANSETRON 4 MG/2 ML VIAL IVP PRN (07:51)
[2018-01-13] MEDS: FLECAINIDE 50 MG TAB PO SCH (09:14)
[2018-01-13] MEDS: METOPROLOL TARTRATE 25 MG TAB PO SCH (09:14)
[2018-01-13] MEDS ORDERED: PROPOFOL 10 MG/ML 50 ML VIAL IV ONE (11:03)
[2018-01-13] MEDS ORDERED: LACTATED RINGERS 1,000 ML IV ONE (11:07)
[2018-01-13] MEDS: PANTOPRAZOLE 40 MG TABLET PO SCH (11:09)
--- NOTE | 2018-01-13 11:33 | P.PCN ---
Date of Procedure: 01/13/18 Description of Procedure: BRIEF HISTORY: Patient is a 52-year-old, pleasant, female patient who presented to the emergency department with complaints of epigastric and chest pain. She has a known history of GERD and is currently on treatment with ranitidine however reports break through symptoms despite treatment. She had a cardiac evaluation in the hospital which was negative, prompt GI evaluation. PROCEDURE PERFORMED: Esophagogastroduodenoscopy. PREOPERATIVE DIAGNOSIS: Epigastric abdominal pain, history of gastroesophageal reflux disease refractory to treatment. IV sedation per anesthesia. PROCEDURE: After informed consent was obtained, the patient was brought into the endoscopy unit. IV sedation was administered by Anesthesia under continuous monitoring. Initially the Olympus GIF-180 video endoscope was inserted into the mouth. Esophagus intubated without any difficulty. It was gradually advanced into the stomach and duodenum and carefully examined. The bulb and the second part of the duodenum appeared normal. The scope at this time was withdrawn to the stomach, adequately insufflated with air, and upon careful examination a small superficial ulcer in the antrum of the stomach was noted with scattered gastritis in the antrum and body. Biopsies were taken of both the ulcer and the antrum and body for histology. Otherwise, mucosa of the antrum, body, cardia and the fundus appeared grossly normal. The scope was then withdrawn into the esophagus. The GE junction was located at 35 cm from the incisors. The esophagus appeared normal. There were no erosions or ulcerations seen and the patient tolerated the procedure well. IMPRESSION: 1. Small superficial gastric ulcer in the antrum with no evidence of bleeding or high risk stigmata. 2. Gastritis with biopsies taken for histology. 3. Exam otherwise normal. RECOMMENDATIONS: The findings of this examination were discussed with the patient and her family. The patient should continue PPI therapy Protonix 40 mg twice daily. Repeat endoscopy should be performed in 6-8 weeks to ensure healing of the ulcer. The patient was instructed on lifestyle modifications for reduction of GERD including tobacco cessation. Patient instructed to follow -up on pathology from biopsies.
[2018-01-13 11:44] VITALS: BP 96/54; PULSE 57
[2018-01-13] MEDS ORDERED: PANTOPRAZOLE 40 MG TABLET PO SCH (11:45)
--- NOTE | 2018-01-13 14:54 | P.DS ---
Providers Date of admission: 01/13/18 08:32 Attending physician: Vick Urbano MD Consults: 01/10/18 08:33 Consult Physician Stat Consulting Provider: [facility] Consult Reason/Comments: Chest pain, palpitation Do you want consulting provider notified?: Yes 01/10/18 17:28 Consult Physician Routine Consulting Provider: Dani Burch Consult Reason/Comments: epigastric pain Do you want consulting provider notified?: Yes Primary care physician: Ej Laura - Discharge Diagnosis(es) (1) Atrial fibrillation with RVR Patient initially complained of intermittent heart racing and shortness of breath. On admission she was in normal sinus rhythm. She was initially kept on telemetry overnight and during that time she had several short episodes of atrial fibrillation with RVR with heart rate going up to 160. She was then started on Lopressor 25 mg twice a day by cardiology and continued to be monitored. She still had some paroxysmal episodes of tachycardia and after ischemic workup she was started on Tambocor 50 mg daily by cardiology after which she remained in normal sinus rhythm for 24 hours. Her [id number] to ask score was 1 for gender and cardiology did not recommend anticoagulation at this point. She may remain on home ASA but given active gastritis and ulcer she was advised to restart it in 2 weeks On discharge cardiology recommended Tambocor but instructed the patient not to start taking it right away but after once she follows up in their office. Cardiology provided prescription and instruction for the medication. No Lopressor was recommended on discharge Current Visit: Yes Status: Acute Priority: High (2) Epigastric abdominal pain Patient was developed by gastroenterology service and underwent EGD. The findings as described above with active gastritis and antral ulcer nonbleeding. Biopsies were taken. Patient was advised advised to remain on PPI. 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 She described it as a burning sometimes provoked by food and sometimes more like a pressure-like sensation. These episodes will sometimes be associated with shortness of breath and nausea. Also patient noted that occasionally she would have sensation of heart racing and at that point would be hard for her to catch her breath. Emergency department here initial lab work was stable chest x-ray unremarkable EKG with some Q waves. And troponin negative. On the day of discharge patient was seen and evaluated. She did not having any chest pain or palpitations nausea vomiting epigastric pain headache fever or chills. Her lungs are clear to auscultation. Cardiovascular regular rhythm and rate. Tinnitus without swelling abdomen was soft nontender. Patient was cleared for discharge by gastroenterology and cardiology has discharged to follow-up in their office as recommended. Pertinent Studies: Echocardiogram 01/11/2018: EF of 55-60% Borderline concentric LVH No valvular disease No pulmonary hypertension No pericardial effusion Lexiscan stress test 01/11/2018: No scintigraphic evidence of reversible ischemia Procedures: EGD 01/13/2018: 1. Small superficial gastric ulcer in the antrum with no evidence of bleeding or high risk stigmata 2. Gastritis with biopsies taken for pathology 3. Exam otherwise normal Recommendations: PPI and repeat endoscopy in 6-8 weeks to ensure healing of the ulcer; follow-up pathology results; lifestyle modifications including tobacco cessation Plan - Discharge Summary Discharge Rx Participant: No New Discharge Prescriptions: New Pantoprazole [Protonix] 40 mg PO AC-BID #60 tablet. Atorvastatin [Lipitor] 10 mg PO DAILY #30 tab Continue Cyanocobalamin (Vitamin B-12) [Vitamin B-12] 1,000 mcg PO HS Discontinued Aspirin EC [Ecotrin Low Dose] 81 mg PO HS Discharge Medication List Cyanocobalamin (Vitamin B-12) [Vitamin B-12] 1,000 mcg PO HS 01/10/18 [History] Atorvastatin [Lipitor] 10 mg PO DAILY #30 tab 01/13/18 [Rx] Pantoprazole [Protonix] 40 mg PO AC-BID #60 tablet. 01/13/18 [Rx] Follow up Appointment(s)/Referral(s): Alfonso Lujan MD [STAFF PHYSICIAN] - 01/25/18 3:45 pm Ej Laura MD [Primary Care Provider] - 01/17/18 12:15 pm Chago Hernandes MD [STAFF PHYSICIAN] - 02/04/18 2:00 pm Patient Instructions/Handouts: A-fib (Atrial Fibrillation) (DC), Peptic Ulcer ( DC), Diet for Stomach Ulcers and Gastritis (GEN), Upper Endoscopy (DC) Activity/Diet/Wound Care/Special Instructions: resume usual activity and diet avoid NSAIDs Do not start new Flecainide medication yet. Monitor blood pressures at home until follow up with Dr. Lujan. Bring flecainide prescription to office visit with Dr. Lujan. Care Plan Goals (MU): follow up with as instructed follow up biopsy results with gastroenterology office restart aspirin 81 mg daily in 2 weeks Discharge Disposition: HOME SELF-CARE
--- NOTE | 2018-01-13 15:08 | P.PN ---
Subjective Progress Note Date: 01/13/18 This is a pleasant 52-year-old female patient with a past medical history significant for dyslipidemia not on any medication as well as history of smoking presented to the emergency room complaining of epigastric discomfort. The patient stated that she was experiencing discomfort mainly in the epigastric area but sometimes is associated with a pressure in the mid of the chest radiating to her neck. These episodes of epigastric and chest discomfort are associated with shortness of breath. She stated that it started about a year ago and over the last several weeks to several month she has been experiencing them more often. Beside that she has been experiencing intermittent episodes of heart racing and fluttering associated with dizziness and lightheadedness. No loss of consciousness and no syncope. 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 No history of cardiac arrhythmia as well. The EKG showed sinus rhythm with nonspecific changes only. 3 sets of cardiac enzymes were checked and came in to be unremarkable. The chest x-ray showed no acute abnormalities. The patient has been going in and out atrial fibrillation with RVR Y she is in the hospital. She is has no history of atrial fibrillation in the past. She does have history of thyroid disorder but she is not on any medication. She was also has history of hyperlipidemia and she is not on any medications for that. The LDL was checked and came in to be severely elevated. Beside that the patient does have history of snoring during the night but she never been diagnosed with obstructive sleep apnea. In terms of past medical history she does have dyslipidemia not on any medication and also history of hypothyroidism. No major cardiovascular surgery before. The patient is a smoker of about one pack per day. She does have very significant family history of coronary artery disease. 01/12/2018 Patient had a stress test that was negative for any reversible ischemia, she has known paroxysmal A. fib, went into atrial fibrillation through the evening and was transferred to [facility]. Since her transfer upper she's been in and out of atrial fibrillation. Currently in normal sinus rhythm. We will put the patient on flecainide 50 mg one tablet by mouth twice a day today. She is also scheduled tomorrow by GI service to undergo an EGD. Blood pressure 110/60 , heart rate in the 60s. LV function is normal. 01/13/2018 Patient seen and examined this morning, continues to be in a normal sinus rhythm. Blood pressure running around 90 systolic, therefore the beta karissa and flecainide were held. We will discontinue both of those, she may be able to be discharged home once cleared by GI service. She is scheduled today to undergo an EGD. We will give her a prescription for flecainide, she will be seen in the office by Dr. Cooper, and his decision then regarding the initiation time of the flecainide will be made. Objective - Vital Signs Vital signs: Vital Signs Temp 97.3 F L 01/13/18 07:49 Pulse 57 L 01/13/18 12:00 Resp 16 01/13/18 11:42 BP 96/54 01/13/18 11:42 Pulse Ox 92 L 01/13/18 11:42 Intake & Output 01/12/18 01/13/18 01/13/18 18:59 06:59 18:59 Intake Total 480 850 Output Total 1500 Balance -1020 850 Intake: IV 250 Oral 480 600 Output: Urine 1500 Other: # Voids 1 - Exam PHYSICAL EXAMINATION: GENERAL: 22-year-old female in no acute distress at the time of my examination HEENT: Head is atraumatic, normocephalic. Pupils equal, round. Sclera anicteric. Conjunctiva are clear. Mucous membranes of the mouth are moist. Neck is supple. There is no elevated jugular venous pressure.] bruit is heard. HEART EXAMINATION: Heart S1, S2 normal. No murmur or gallop heard. CHEST EXAMINATION: Lungs are clear to auscultation and precussion. No chest wall tenderness is noted on palpation or with deep breathing. Positive mid epigastric tenderness ABDOMEN: Soft, nontender. Bowel sounds are heard. No organomegaly noted. EXTREMITIES: 2+ peripheral pulses with no evidence of peripheral edema and no calf tenderness noted. NEUROLOGIC patient is awake, alert and oriented ?-3. . - Labs CBC & Chem 7: 01/10/18 07:04 01/10/18 07:04 Assessment and Plan Plan: Assessment #1 intermittent episodes of epigastric/chest discomfort #2 abnormal EKG concerning for severe CAD #3 paroxysmal atrial fibrillation #4 hypothyroidism #5 possible sleep apnea #6 significant history of smoking Plan Patient remaining in normal sinus rhythm. We will discontinue the Lopressor and flecainide. She may be able to be discharged home once cleared by GI after her EGD. Follow-up appointment with Dr. Cooper. We will give the patient a prescription for flecainide to be initiated as an outpatient, as directed by Dr. Cooper. Patient does not require anticoagulation as she has a chadsvasc score of 1. DNP note has been reviewed, I agree with a documented findings and plan of care. Patient was seen and examined.
== END 2018-01-13 15:35 | disposition home or self-care (01) | DRG 384 ==
LOC: EC 06:25 → 3OBS 08:47 → 6SEL 01-12 02:11 → OBSVTOIN 01-13 08:32
PROVIDERS: ADMIT Hospitalist; ATTEND Hospitalist
PROC: 0DB68ZX Excision of Stomach, Via Natural or Artificial Opening Endoscopic, Diagnostic (ICD-10-PCS; 2018-01-13)
PROC: 0DB78ZX Excision of Stomach, Pylorus, Via Natural or Artificial Opening Endoscopic, Diagnostic (ICD-10-PCS; principal; 2018-01-13 08:35)
DX: K25.9 Gastric ulcer, unspecified as acute or chronic, without hemorrhage or perforation (principal); K29.70 Gastritis, unspecified, without bleeding; K21.9 Gastro-esophageal reflux disease without esophagitis; Z71.6 Tobacco abuse counseling; I48.0 Paroxysmal atrial fibrillation; M32.9 Systemic lupus erythematosus, unspecified; E03.9 Hypothyroidism, unspecified; E78.5 Hyperlipidemia, unspecified; F17.210 Nicotine dependence, cigarettes, uncomplicated; G47.30 Sleep apnea, unspecified; M43.10 Spondylolisthesis, site unspecified; R94.31 Abnormal electrocardiogram [ECG] [EKG]; Z79.82 Long term (current) use of aspirin; Z81.1 Family history of alcohol abuse and dependence; Z82.49 Family history of ischemic heart disease and other diseases of the circulatory system; Z90.49 Acquired absence of other specified parts of digestive tract; Z98.51 Tubal ligation status; Z91.030 Bee allergy status
CPT/HCPCS: 36415; 43239; 71046; 78452; 80053; 80061; 82150; 82550; 82553; 83690; 83735; 84443; 84484; 85025; 85610; 85730; 93005; 93017; 93306; 96360; 99285

== ENCOUNTER 2018-07-18 09:03 | Day surgery (SDC) | payer BC ==
[2018-07-14 10:40] VITALS: BMI 32.3
[~2018-07-18 09:03] MED LIST: LACTATED RINGERS 1,000 ML IV SCH; LIDOCAINE 1% 20 ML VIAL (10MG/ML) FOR IV START INTRADERMA PRN; MIDAZOLAM (PF) 2 MG/2 ML VIAL IV PRN
[2018-07-18 09:23] VITALS: TEMP 98.3
[2018-07-18] MEDS ORDERED: GLYCOPYRROLATE 0.2 MG/ML 2 ML VIAL ONE (09:46)
[2018-07-18] MEDS ORDERED: LIDOCAINE 1% INJ 10MG/ML (20 ML MDV) ONE (09:46)
[2018-07-18] MEDS ORDERED: PROPOFOL 10 MG/ML 20 ML VIAL IV ONE (09:46)
[2018-07-18 10:25] VITALS: RESP 18
--- NOTE | 2018-07-18 10:33 | P.PCN ---
Date of Procedure: 07/18/18 Procedure(s) Performed: Procedures: 1. Esophagogastroduodenoscopy and biopsy. 2. Colonoscopy and biopsy. Preoperative diagnosis: Gastritis and screening for colon cancer. Postoperative diagnosis: 1. Small sliding hiatal hernia with no obvious esophagitis or complicated reflux disease. 2. Mild antral gastritis. 3. Multiple biopsies obtained from the duodenum, antrum and esophagus. 4. Colon exam to the cecum showed a diminutive polyp in the rectum which was biopsied but no significant polyps or cancer. Preparation: HalfLytely prep. Sedation: Was provided by anesthesia. Brief clinical history: The patient is a 53-year-old female who was hospitalized in no obvious and had an upper endoscopy that revealed an antral ulcer. The patient was recommended repeat exam in around 8 weeks or so. In addition, she is scheduled for screening colonoscopy with a single risk factor. Procedure: With the patient on her left lateral decubitus position and after informed consent and adequate sedation, I passed the Olympus-GIF 190 video upper endoscope through the cricopharyngeus down the esophagus. There was a small sliding hiatal hernia but no obvious esophagitis or complicated reflux disease. The endoscope was then passed into the stomach which was insufflated with air and inspected in detail including the retroflex view in the cardia. There was some mottling and erythema in the antrum but no ulcers or erosions the previously described antral ulcer has completely healed. Pyloric channel, duodenal bulb, post bulbar area and descending duodenum appeared within normal limits. Biopsies from the duodenum, antrum and esophagus then the endoscope was withdrawn and I proceeded with the colonoscopy. Perianal area did not show any fissures or fistulas. There were no masses felt on digital rectal examination. The Olympus CFH 190 L video colonoscope was then inserted in the rectum in the usual fashion and advanced to the cecum. The mucosa appeared healthy. No diverticular disease was noted. There was a diminutive polyp in the rectum close to the anorectal junction which was biopsied but no other significant polyps or tumors. I retroflexed the endoscope in the rectum before the endoscope was withdrawn. The patient tolerated the procedure well. Plan: The patient was reassured. Will await pathology results. I anticipate repeating her colonoscopy in 5 or more years depending on the pathology results. I will keep you updated on her progress.
[2018-07-18 10:44] VITALS: BP 110/72; PULSE 68
== END 2018-07-18 10:54 | disposition home or self-care (01) ==
LOC: ORWHC2ENDO 09:03
DX: Z12.11 Encounter for screening for malignant neoplasm of colon (principal); D12.8 Benign neoplasm of rectum; K29.50 Unspecified chronic gastritis without bleeding; K21.0 Gastro-esophageal reflux disease with esophagitis; K44.9 Diaphragmatic hernia without obstruction or gangrene; E78.5 Hyperlipidemia, unspecified; I49.9 Cardiac arrhythmia, unspecified; Z79.899 Other long term (current) drug therapy; Z88.8 Allergy status to other drugs, medicaments and biological substances; Z91.030 Bee allergy status
CPT/HCPCS: 88305; 45380; 43239; J2001; J2704